=== PATIENT | male | born 1975 | race Caucasian/White ===

== ENCOUNTER 2023-02-04 10:30 | Day surgery (SDC) | payer BC ==
[2023-02-03 14:07] VITALS: BMI 37.2
[2023-02-04] MEDS ORDERED: Bupivacaine PF 0.5% 30 ML VIAL ONE (12:52)
[2023-02-04] MEDS ORDERED: Lidocaine 2% 10 ML INJ ONE (12:52)
[2023-02-04] MEDS ORDERED: PROPOFOL 40 ML ONE (12:56)
[2023-02-04] MEDS ORDERED: Lidocaine 2% PF 5 ML VIAL ONE (12:57)
[2023-02-04] MEDS ORDERED: fentaNYL 50 mcg/mL 1 mL Vial ONE (12:57)
[2023-02-04] MEDS ORDERED: Ondansetron PF 4 MG/2 ML Vial ONE (12:57)
[2023-02-04] MEDS ORDERED: CEFAZOLIN 2 GM VIAL ONE (13:01)
[2023-02-04] MEDS ORDERED: Ketorolac Tromethamine 30 MG/ML VIAL ONE (13:49)
== END 2023-02-04 15:00 | disposition home or self-care (01) ==
LOC: CSHSDC 10:30
PROVIDERS: ATTEND Podiatrist Foot & Ankle Surgery
PROC: 0Y6P0Z0 Detachment at Right 1st Toe, Complete, Open Approach (ICD-10-PCS; principal; 2023-02-04)
DX: M86.171 Other acute osteomyelitis, right ankle and foot (principal); I11.0 Hypertensive heart disease with heart failure; E78.00 Pure hypercholesterolemia, unspecified; E11.9 Type 2 diabetes mellitus without complications; L97.512 Non-pressure chronic ulcer of other part of right foot with fat layer exposed; E11.42 Type 2 diabetes mellitus with diabetic polyneuropathy; Z79.899 Other long term (current) drug therapy
CPT/HCPCS: 93005; 93010; J1885; J2001; J2405; J2704; J3010; S0020